=== PATIENT | female | born 1990 | race Caucasian/White ===

== ENCOUNTER 2018-11-24 10:55 | Emergency (ER) | payer OTHER ==
[~2018-11-24] VITALS: Ht 172.7 cm; Wt 63.5 kg
[2018-11-24 10:55] VITALS: BP 119/72
== END 2018-11-24 12:00 | disposition home or self-care (01) ==
LOC: ER 11:01
DX: F41.9 Anxiety disorder, unspecified (principal); Z88.0 Allergy status to penicillin

== ENCOUNTER 2019-12-14 14:26 | Emergency (ER) | payer OTHER ==
[~2019-12-14] VITALS: Ht 175.3 cm; Wt 54.4 kg
--- NOTE | 2019-12-14 14:50 | NUR ---
URINE SENT TO LAB
--- NOTE | 2019-12-14 14:56 | NUR ---
PT [id number]. AMBULATORY WITH STEADY GAIT. C/O R AND LEFT FLANK PAIN. PT STATES SHE HAS HAD THIS BEFORE AND IT MUST BE "KIDNEY INFECTION." PLACED ON MONITOR AND PULSE OX. VSS. NO ACUTE DISTRESS NOTED UPON ASSESSMENT, AWAITING MD FOR EVAL. WILL CONTINUE TO MONITOR.
[2019-12-14 15:30] LABS: APPEARANCE,URINE Clear (CLEAR); BILIRUBIN,URINE Negative (NEGATIVE); BLOOD, URINE Negative Ery/uL (NEGATIVE); COLOR,URINE Yellow (YELLOW); KETONES,URINE Trace (NEGATIVE); LEUKOCYTE ESTERASE ,URINE Negative (NEGATIVE); NITRITE, URINE Negative (NEGATIVE); PROTEIN,URINE Negative (NEGATIVE); UGLUCOSE Negative (NEGATIVE); UROBILINOGEN,URINE 0.2 EU/dL (0.2)
[2019-12-14 15:43] LABS: BACTERIA,URINE Few /HPF (None Seen); RBC,URINE 0-2 /HPF (0-2); WBC,URINE 0-2 /HPF (0-3)
[2019-12-14 15:44] LABS: MUCUS,URINE Few /LPF (None Seen); SQUAMOUS EPITHELIAL CELL,UR Few /HPF (None Seen); URINE AMORPHOUS URATE Few /HPF (None Seen)
--- NOTE | 2019-12-14 16:23 | NUR ---
Patient discharged to home in stable condition. Written and verbal after care instructions given. Patient verbalizes understanding of instruction. pt ambulatory with a steady gait.
[2019-12-14 16:25] VITALS: BP 118/66
== END 2019-12-14 16:25 | disposition home or self-care (01) ==
LOC: ER 14:26
DX: R10.9 Unspecified abdominal pain (principal); R35.0 Frequency of micturition; F31.9 Bipolar disorder, unspecified; Z88.0 Allergy status to penicillin
CPT/HCPCS: 81000-TC; 82962-TC; 84703-TC